=== PATIENT | female | born 1995 | race Caucasian/White ===

== ENCOUNTER 2023-04-23 04:35 | Emergency (ER) | payer MEDICAID, SELFPAY ==
--- NOTE | 2023-04-23 05:04 | W.ED.GENAD ---
Discharge Plan Discharge Details Chief Complaint: PsychEval Primary Care Provider: None,None ED Provider: Evgeny Graf Medical Decision Making 27-year-old female with a past medical history of borderline personality disorder, bipolar, and history of psychotic breakdowns that been associated with break-ups with boyfriends and have led to inpatient psychiatric admissions. She presents today for mental health evaluation. Per family who is here with her the patient had been having some changes in her mental behaviors over the last few months. 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 She recently broke up with her boyfriend about 8 weeks ago as he was no longer able to tolerate the changes in behavior. She does not take any of her prescribed mental health medications. And over the last week or so she has spiraling per family. Family has noticed erratic and somewhat manic-like behavior over the last few days, and then last night they contacted the patient and she was per family angry, aggressive, and drove away from [facility] and drove here to [facility] to go [place] With the help of law enforcement they were able to ping the phone, the patient was found roughly [place] miles into the [facility] off of any main road. She was brought in voluntarily but certainly un-enthusiastically. Currently the patient states that she want to go into the [facility] to have some time alone. Mind you that she did go into the [facility] at 3 in the morning and an unknown part of the state for her. She states that she has tried to hurt herself in the past, and she is not sure if she wants to hurt herself now. She states very clearly that she is unwilling to tell me the ways in which she wants to hurt herself, and how she would kill herself. She states that she might state and discussed that with another person though. She refuses to speak about auditory or visual hallucinations. She gives no other accurate history or complaints at this time. Exam demonstrates patient with notable pressured speech, flight of ideas, extremely confrontational disposition. Patient does state things that certainly do not line up with the current reality of the events. Family is here and confirms that this is not the patient's normal disposition, and also states that this is identical to when she has had her previous psychotic breakdowns in the past that required mental health admission. Currently the patient is yelling, slamming doors, and few times attempted to barricade the doors to prevent anyone from coming into the room to see or evaluate her. Patient clearly does not demonstrate signs of mental stability or clairvoyance. Concern for psychiatric breakdown and potential suicidality based on behavior and the history. There is a desperate need to make sure that the patient is medically cleared as there could be a component of a metabolic process that could be causing her symptoms. We did attempt to discuss with the patient the need for labs for medical clearance, as well as the transition from her current close to the hospital scrubs. Patient refused this and slammed the door at nv. We will continue to attempt to verbally reason with the patient, but we may require medication management to achieve blood draw and medical clearance. 5:48 AM The patient was unwilling to take off any close, she was unwilling to change, she was unwilling and refused to remove the multiple large chain necklaces around her neck. Out of concern for self-harm, as demonstrated by her previous behaviors and mindset, as well as the concern for potential metabolic cause of her current altered mental status and psychosis, we did again attempt to verbally reason with the patient for her needs for evaluation and management of her own safety in this situation. Patient notably refused and was not able to be reasoned with. Staff were gathered, and the patient was given the option of voluntarily helping in the process to maintain her safety and to complete her medical evaluation, versus medical and chemical restraints. Patient began screaming and cursing at all staff. She tried to slam and barricaded the door again. The decision was made for the patient's safety and the safety of others to administer 4 mg of IM Haldol, 2 mg of Ativan, and 25 mg of Benadryl IM. Restraints will be used in the interim. 7:08 AM On reassessment patient is doing much better, she is notably reasonable, polite, but also seems to have a much better understanding of her clinical concern, as well as our desire to make sure that she is safe from a medical standpoint as well as from a psychiatric standpoint. Restraints will be removed. We are still waiting for the completion of labs to determine medical clearance. 7:50 AM Patient's remained stable. She is now medically clear. We have reached out to mental health and they will come and evaluate the patient. Patient will be signed out to my colleague Dr. Vargas for follow-up on mental health assessment. [facility] General Date/Time Provider Initiated Documentation: 04/23/23 04:46. HPI Narrative: 27-year-old female with a past medical history of borderline personality disorder, bipolar, and history of psychotic breakdowns that been associated with break-ups with boyfriends and have led to inpatient psychiatric admissions. She presents today for mental health evaluation. Per family who is here with her the patient had been having some changes in her mental behaviors over the last few months. 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 She recently broke up with her boyfriend about 8 weeks ago as he was no longer able to tolerate the changes in behavior. She does not take any of her prescribed mental health medications. And over the last week or so she has spiraling per family. Family has noticed erratic and somewhat manic-like behavior over the last few days, and then last night they contacted the patient and she was per family angry, aggressive, and drove away from [facility] and drove here to [facility] to go [place] the [place]. With the help of law enforcement they were able to ping the phone, the patient was found roughly [place] into the [facility] [place] off of any main road. She was brought in voluntarily but certainly un-enthusiastically. Currently the patient states that she want to go into the [facility] to have some time alone. Mind you that she did go [facility] the [facility] at 3 in the morning and an unknown part of the state for her. She states that she has tried to hurt herself in the past, and she is not sure if she wants to hurt herself now. She states very clearly that she is unwilling to tell me the ways in which she wants to hurt herself, and how she would kill herself. She states that she might state and discussed that with another person though. She refuses to speak about auditory or visual hallucinations. She gives no other accurate history or complaints at this time. Review of Systems All systems reviewed & are unremarkable except as noted in HPI and below PFSH Social History Smoking/Tobacco Use Status: Unknown Smoking risk assessment performed?: Yes Exam Narrative Exam Narrative: 1.Const: Well-nourished, Well-developed, appearing stated age 2.Eyes: PERRL, no conjunctival injection, and symmetrical lids. 3.ENT: Atraumatic external nose and ears. Moist MM. Neck: Symmetric, trachea midline, No thyromegaly. 4.CVS: +S1/S2, No murmurs or gallops. Peripheral pulses 2+ and equal in all extremities. Brisk capillary refill in all extremities. 5.RESP: Unlabored respiratory effort. Clear to auscultation bilaterally. No wheezes rales or rhonchi 6.GI: Soft, Nontender/Nondistended, No hepatosplenomegaly. No guarding or rebound. 7.MSK: Normocephalic/Atraumatic, Extremities w/o deformity or ttp No cyanosis or clubbing, Normal movement of all extremities 8.Skin: Warm, Dry. No rashes or lesions. 9.Neuro: ear nose throat surgeon II-XII grossly intact. Sensation grossly intact, no focal neurologic deficits. 10.Psych: (AAO) x3. Flight of ideas, pressured speech, extremely confrontational disposition
[2023-04-23] MEDS: LORazepam 2 MG/ML VIAL IM (05:47)
[2023-04-23] MEDS: diphenhydrAMINE 50 MG/ML VIAL 25 MG IM (05:47)
[2023-04-23] MEDS: Haloperidol 5 MG/ML VIAL 4 MG IM (05:47)
[2023-04-23 06:52] LABS: Abs Immature Grans 0.09 10^3/uL (0.0-0.06); Absolute Basophil Count 0.04 10^3/uL (0.0-0.2); Absolute Lymphocyte Count 1.58 10^3/uL (1.2-3.4); Absolute Monocyte Count 0.65 10^3/uL (0.1-0.8); Absolute Neutrophil Count 7.43 10^3/uL (1.2-6.7); Basophils % 0.4; HCT 38.2 % (36.0-46.0); HGB 13.2 g/dL (11.2-15.7); Immature Grans % 0.9; Lymphocytes % 16.1; MCH 28.7 pg (27.0-33.0); MCHC 34.6 % (32.0-36.0); MCV 83 fL (80-95); MPV 9.5 fL (8.0-11.0); Monocytes % 6.6; Platelet Count 304 10^3/uL (130-400); RDW 12.9 % (11.7-14.6); RDW-SD 38.8 fL; WBC 9.79 10^3/uL (4.4-10.8)
[2023-04-23 07:20] LABS: ALT 17 U/L (14-59); AST 22 U/L (15-37); Albumin 4.1 g/dL (3.4-5.0); Alkaline Phosphatase 51 U/L (46-116); Anion Gap 13.8 mmol/L (3-11); BUN 13 mg/dL (7-18); Bilirubin, Total 0.4 mg/dL (0.2-1.0); CO2 19.2 mmol/L (21.0-32.0); CREATININE 0.9 mg/dL (0.55-1.02); Calcium 9.4 mg/dL (8.5-10.1); Chloride 105 mmol/L (98-107); Estimated GFR 89.86 (mL/min/1.73m2); Glucose 92 mg/dL (74-106); Potassium 3.6 mmol/L (3.5-5.1); Sodium 138 mmol/L (136-145); TSH (W/Ref FT4) 4.37 uIU/mL (0.36-3.74); Total Protein 7.8 g/dL (6.4-8.2)
[2023-04-23 07:22] LABS: ETHANOL BLOOD < 3.0 mg/dL (<10)
--- NOTE | 2023-04-23 08:22 | W.EDPROG ---
Date of service: 04/23/23 Time of Service: 08:22 Medical Decision Making I received signout on this medically cleared 27-year-old female with a history of bipolar disorder. Patient has had prior psychiatric hospitalizations. She transiently required intramuscular medications using haloperidol and lorazepam and restraints. She would meet criteria for EE as she was reportedly found wandering in the [place]. Crisis clinicians have been paged to assess the patient. She is reportedly calm at the moment. We will update documentation as clinically warranted and signed patient out to the oncoming evening provider. I ordered the patient a regular diet on a safety tray. 9:11 AM Salicylate level mildly elevated at 3.7 mg/dL. We will repeat this in 3 hours. Negative acetaminophen level. Supportive mom reportedly in waiting room. She does not want to see the patient at this point in time. Laura from [facility] has arrived to assess patient. Patient reportedly has had a prescription 1 year ago for 50 mg sertraline tablets. This was reportedly prescribed by Estefany Pratt, a family nurse practitioner in [place] in December 2021. 10:20 AM Negative serum hCG. 10:45 AM I spoke with Laura again from [facility] [place]. She reported that the patient was voluntary for inpatient placement. If patient wants to leave she will require reassessment. 1:55 PM Downtrending near normal salicylate level after 4 hours. Given no ongoing salicylate use will defer additional labs at this point time and consider patient medically cleared. 3:15 PM No active behavioral issues my shift. I will sign patient out to Dr. Cardenas. Sign Out Sign Out Data: Sign Out Comment: Psychiatric episode bipolar and psychosis. Follow-up on mental health assessment. Last updated by Evgeny Graf DO at 04/23/23 07:52 Discharge Plan Discharge Details Chief Complaint: PsychEval Primary Care Provider: None,None ED Provider: Austyn Vargas Home Meds and New Rx's Prescriptions: No Action No Known Home Meds
[2023-04-23 08:49] LABS: Salicylate 3.7 mg/dL (<2.8)
[2023-04-23 08:50] LABS: Acetaminophen < 2 ug/mL (10-30)
--- NOTE | 2023-04-23 09:15 | NUR.NOTE ---
Nursing Note: Oil Heat Technician spoke with mother and she stated that the patient has not been taking her medications in a while. She states that the patients pharmacy is [facility] in [place], [place]. Oil Heat Technician called for a med rec and senior copywriter was informed that the last prescription filled was in 01/03 for Zoloft 50mg daily. This information was relayed to Dr. Vargas.
[2023-04-23 10:01] LABS: HCG Qual (Serum) Negative
[2023-04-23 13:02] LABS: Salicylate 2.9 mg/dL (<2.8)
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
--- NOTE | 2023-04-23 15:31 | NUR.NOTE ---
Pt went to the bathroom but stated that she was unable to produce/catch a urine sample. Informed that this was very important, states understanding of the need.
--- NOTE | 2023-04-23 16:16 | PDOC.CMSAFE ---
Date of service: 04/23/23 Time of Service: 16:16 Care Management Safety Plan Status Status: Interim Reason for Wait Reason for Wait: Other Safety Plan Safety Plan: Sofia is a 27-year-old female with a past medical history of borderline personality disorder, bipolar, and history of psychotic breakdowns that been associated with break-ups with boyfriends and have led to inpatient psychiatric admissions. She has stopped taking her medications for the past few weeks and her behavior has become erratic,per family. She drove away from the [facility] to [facility] and went into the [facility]. Police found her and brought her to [facility]. CM will respond to ED to assess patient after patient has been medically cleared and assessed by screener. If screener deems patient meets criteria for psychiatric stabilization CM will facilitate interdepartmental huddle with [facility] screener for safety planning considerations and meet with patient to review [facility] policy and safety plan, establish individual wishes for treatment and maintain patient rights. In the interim; please note safety plan below to guide patient care while awaiting further assessment in the ED.? SAFETY PLAN: 1. Will remain on suicide precautions and in paper clothes.? 2. Will remain in room under direct supervision of one-on-one staff at all times provided by PATRICA, EDUCATIONAL COORDINATOR filter press operator. 3. May have paper cups, plates, finger foods as well as a cardboard spoon with which to eat meals. 4. Follow [facility] Management of the Admitted Behavioral Health Patient policy. 5. Personal care: Comfort bath system only at this time. 6. Bathroom privileges: with escort in ED. Available in room without limitation on Med/Surg. 6. No personal belongings at this time; per RN discretion. 7. No visitors at this time. 8. Phone contact limited to mother and legal contact at this time at nursing discretion. 9. Activities: Music tablet per RN discretion. Med/Surg: Television and remote available at RN discretion. 10. Due to VOLUNTARY status, if patient wishes to leave [facility], staff will contact [facility] Crisis Screener ([phone]) and On-Call Tariff Compiler ([phone]) as soon as possible. In the event of elopement, notify [facility] Police ([phone]). ?If deemed appropriate for inpatient psychiatric care, safety plan will be established with patient, and care team, to adhere to patient goals, identify restrictions based on behavioral status, address nutrition, and determine allowed personal belongings, tools for hygiene and personal care. As well plan will
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
[2023-04-23 17:41] LABS: Bilirubin Small (Negative); Blood Negative (Negative); Clarity Clear (Clear); Glucose Negative (Negative); Ketones Negative (Negative); Leukocyte Esterase Negative (Negative); Nitrite Negative (Negative); Specific Gravity >= 1.030 (1.005-1.025); Urobilinogen 0.2 mg/dL (Up to 0.2)
[2023-04-23 17:49] LABS: Bacteria Few HPF (Negative); Epithelial Cells Many HPF (Negative); RBC 0-2 HPF (0-2); WBC Negative HPF (0-5)
[2023-04-23 17:50] LABS: C & S Indicated? No/Sq. Contamination; Casts Negative LPF (Negative); Crystals Negative HPF (Negative); Mucus Trace (Negative)
[2023-04-23 17:54] LABS: *AMPHETAMINES SCREEN URINE Negative (Negative); *BARBITURATES SCREEN URINE Negative (Negative); *BENZODIAZEPINES SCREEN URINE Negative (Negative); Cannabinoids THC Positive (Negative); Cocaine Screen,Urine Negative (Negative); METHADONE URINE SCREEN Negative (Negative); OPIATES URINE SCREEN Negative (Negative); Tricyclic Antidepressants Negative (Negative)
--- NOTE | 2023-04-23 18:34 | NUR.NOTE ---
Nursing Note: PT has given staff permission to speak with her sister Chloé Aguilera and her mother Erica.
--- NOTE | 2023-04-23 22:10 | NUR.NOTE ---
Addendum entered by Sonya Gr RN 04/24/23 01:00: 2200* Original Note: Nursing Note: This RN took over as primary RN at 1000. Pt in bed appears to be sleeping with sitter at bedside.
[2023-04-24 09:14] VITALS: BP 131/97; PULSE 100; TEMP 36.5; O2SAT 99
--- NOTE | 2023-04-24 09:22 | W.EDPROG ---
Date of service: 04/24/23 Time of Service: 09:22 Medical Decision Making pt calm and cooperative, caox4 in no distress, reading papers on her stretcher, denies si/hi at this time, pending mental health reevaluation this morning but plan at present is still to seek voluntary placement. Sign Out Sign Out Data: Sign Out Comment: Psychiatric episode bipolar and psychosis. Follow-up on mental health assessment. Last updated by Evgeny Graf DO at 04/23/23 07:52 Sign Out Comment: Patient is pending placement in the setting of psychosis. She is medically cleared. Last updated by Austyn Vargas MD at 04/23/23 15:19 Discharge Plan Discharge Details Chief Complaint: PsychEval Primary Care Provider: None,None ED Provider: Juanito Harrison Home Meds and New Rx's Prescriptions: No Action No Known Home Meds
--- NOTE | 2023-04-24 11:55 | MHPN_ITS ---
Date of service: 04/24/23 Time of Service: 11:55 PHQ-9 Over the last 2 weeks, how often have you been bothered by any of the following problems? 1. Little interest or pleasure in doing things: nearly every day 2. Feeling down, depressed, or hopeless: nearly every day 3. Trouble falling or staying asleep, or sleeping too much: nearly every day 4. Feeling tired or having little energy: nearly every day 5. Poor appetite or overeating: nearly every day 6. Feeling bad about yourself - or that you are a failure or have let yourself and your family down: nearly every day 7. Trouble concentrating on things, such as reading the newspaper or watching television: nearly every day 8. Moving or speaking so slowly that other people could have noticed? - Or the opposite - being so fidgety or restless that you have been moving around a lot more than usual: nearly every day 9. Thoughts that you would be better off or of hurting yourself in some way: nearly every day Total score: 27 If you checked off any problems, how difficult have these problems made it for you to do your work, take care of things at home, or get along with other people?: extremely difficult PHQ-9 Results: Positive Source: Developed by Drs. Castro Feldman, Cydney Reaves, Darrian Cr and colleagues, with an educational latanya from [employer]. Suicide Severity Rate CSSRS Have you wished you were or wished you could go to sleep and not wake up?: Yes Have you actually had any thoughts of killing yourself?: Yes CSSRS2 Have you been thinking about how you might do this?: No Have you had these thoughts and had some intention of acting on them?: No Have you started to work out or worked out the details of how to kill yourself? Do you intend to carry out this plan?: No CSSRS3 Have you ever done anything, started to do anything or prepared to do anything to end your life?: Yes CSSRS4 Was this within the past three months?: Yes Screening Score Total Score: 8 Screening: Positive Mental Health Emergency Note Release HS release signed:: Yes Reason for Visit Client arrived early in the am on 04.23.23 via [facility] after a well person check was requested by her family. Client was agitated and refusing medical clearance after numerous attempts and was slamming doors and attempting to barricade herself in her room. Consequently chemically and physically restrained when she would not comply. 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 Today the client presents as alert and her emotions are more congruent to discussion. This assessment was done face to face. In the last 2 weeks has the pt presented for ES prior to today?: Unknown Client Information Client is: New Well Housed: Yes Non Suicidal Self Injury Current: No History: No Safety Risk/Harm to Self or Others Current Ideation to Harm Self or Others: No Risk: Does risk to harm exist?: yes. Access to means: Yes. Types of Means: Medication and Other. Details: Due to the delusional state the client can get in, her lack of taking her medications and her hoarding medications per her report for an overdose risk is higher. . Counseling provided: Yes Risk: High Risk Duty to warn indicated: No Asssessment/Mental Status Appearance: Disheveled and Poor hygiene Attitude: Cooperative, Guarded and Friendly Behavior: Unremarkable Speech: Normal Affect: Normal Mood: Anxious Thought process: Poverty of content Hallucinations: No Delusions: No Perception: Not impaired Orientation: Fully orientated Memory: Impaired in: Recent Insight: Fair Judgement: Fair Neurovegetative Symptoms Sleep: No change Appetitie: Increase Interests: Decrease Energy: No change Libido: Not applicable Substance Use: Drug Issues: Drug screen result Do you use nicotine?: Yes Have you used substances in the last 7 days?: No Additional Issues: Assaultive/Threatening Behavior: No Medical Concerns: No Client engaged in active self harm w/weapon: No Threatening to run away: No Child reported abuse/neglect: No Voluntarily presenting for services: Yes Domestic violence is a concern: No Extreme Psychosis or extreme behavior is present: No Impression Client is a 27 year old, single, female who lives independently in her apartment in [place]. She is reported by her mother to have a history of symptoms congruent with either a bipolar or schizophrenia diagnosis. She informed ES that she had the client's sister go to the apartment and turn on the location on the client's phone. Because of this forethought the client's mother was able to locate her when she took off yesterday in [facility]. The client nor her family have any tie to this area of [place]. The mother called JUDY who went to locate the client and found her almost 3 miles away from her car that was parked on the side of the road.? Client today presents as more alert and is sitting on her bed. She still presents with some confusion about events and how she feels about some. For example when sharing about her friends suicide she is tearful and states that she blames the family and then stated that she loves the family and they love her. Additionally she shared I know they were in trouble but they loved each other and did so many things together and provided for each other so lovingly. She reports that she is not suicidal however, has been in the last three months and is able to understand that her symptoms have affected her employment, ADL's and decision making skills. She is agreeable to remaining voluntary to seek placement. Resources Reosurces reviewed and given:: Other Plan/Disposition Recommended Disposition: Hospitalization facilities contacted and Therapy. Plan: Client will remain voluntary and seek placement while waiting at [facility]. She will be screened daily by [facility] until placement is found. Person reported agreement to plan: Yes Facilities contacted if Applicable [facility] Not accepted, Other [facility] Not accepted, Only accepting in house referrals [facility] Not accepted, (left a message and have not heard back. ) Other, [facility] Not accepted, Other Reports/communication Outcome discussed with: ED/Personnel
--- NOTE | 2023-04-24 12:32 | PDOC.CMPRO ---
Date of service: 04/24/23 Time of Service: 12:32 Care Management Progress Note Progress Note Text Progress Note Text: Melissa is a 27-year-old female with a past medical history of borderline personality disorder, bipolar, and history of psychotic breakdowns that been associated with break-ups with boyfriends and have led to inpatient psychiatric admissions. She has stopped taking her medications for the past few weeks and her behavior has become erratic, per family reports. She drove away from the [facility] to [facility] and [facility]. Police found her and brought her to [facility]. SAFETY PLAN: 1. Will remain on suicide precautions and in paper clothes.? 2. Will remain in room under direct supervision of one-on-one staff at all times provided by PATRICA, CLARIFYING PLANT OPERATOR stars coordinator. 3. May have paper cups, plates, finger foods as well as a cardboard spoon with which to eat meals. 4. Follow [facility] Management of the Admitted Behavioral Health Patient policy. 5. Personal care: Comfort bath system, showers permitted with escort at RN discretion. 6. Bathroom privileges: with escort in ED. Available in room without limitation on Med/Surg. 6. No personal belongings at this time; per RN discretion. 7. No visitors at this time. 8. Phone contact limited to mother and legal contact at this time at nursing discretion. 9. Activities: Music tablet, soft/paper activity cart items per RN discretion. Med/Surg: Television and remote available at RN discretion. 10.?Due to VOLUNTARY status,?if patient wishes to leave [facility], staff will contact [facility] Crisis Screener ([phone]) and On-Call Panel Instrument Repairer ([phone]) as soon as possible. In the event of elopement, notify [facility] Police ([phone]).
--- NOTE | 2023-04-24 12:35 | PDOC.CMSAFE ---
Date of service: 04/24/23 Time of Service: 12:35 Care Management Safety Plan Status Status: Voluntary Reason for Wait Reason for Wait: Inpatient Admission Safety Plan Safety Plan: Melissa is a 27-year-old female with a past medical history of borderline personality disorder, bipolar, and history of psychotic breakdowns that been associated with break-ups with boyfriends and have led to inpatient psychiatric admissions. She has stopped taking her medications for the past few weeks and her behavior has become erratic, per family reports. She drove away from the [facility] to [facility] and [facility]. Police found her and brought her to [facility]. SAFETY PLAN: 1. Will remain on suicide precautions and in paper clothes.? 2. Will remain in room under direct supervision of one-on-one staff at all times provided by PATRICA, ORACLE IAM CONSULTANT derrick boat operator. 3. May have paper cups, plates, finger foods as well as a cardboard spoon with which to eat meals. 4. Follow [facility] Management of the Admitted Behavioral Health Patient policy. 5. Personal care: Comfort bath system, showers permitted with escort at RN discretion. 6. Bathroom privileges: with escort in ED. Available in room without limitation on Med/Surg. 7. No personal belongings at this time; per RN discretion. 8. No visitors at this time per RN discretion. 9. Phone contact limited to mother and legal contact at this time at nursing discretion. 10. Activities: Music tablet, soft/paper activity cart items per RN discretion. Med/Surg: Television and remote available at RN discretion. 11.?Due to VOLUNTARY status,?if patient wishes to leave [facility], staff will contact [facility] Crisis Screener ([phone]) and On-Call Parcel Wrapper ([phone]) as soon as possible. In the event of elopement, notify [facility] Police ([phone]).
--- NOTE | 2023-04-24 22:25 | NUR.NOTE ---
Nursing Note: This RN took over as primary RN at 2200. Pt sitting in bed. She is tearful and states she just wants to go home or know what is going on. She is requesting use of the tablet. This administrative underwriter will check care plan. Sitter at bedside for patient safety.
--- NOTE | 2023-04-24 22:38 | NUR.NOTE ---
Nursing Note: Provided patient with music tablet per safety care plan. Patient requesting an update on placements with Laura in the morning.
--- NOTE | 2023-04-24 23:16 | W.EDPROG ---
Date of service: 04/24/23 Time of Service: 15:55 Medical Decision Making Patient signed out to me pending psychiatric admission. Patient medically clear and resting calmly in bed. Patient did state some slight increase of anxiety but was requesting nicotine so Nicotrol inhaler was ordered and patient remained calm through the remainder of my shift. Patient had no further complaints and rested in her bed for the full evening. Did hear from mental health that patient has potential to go to inpatient unit tomorrow as long as she remains calm for the remainder of the evening. We will continue to monitor pending bed availability. 2315-patient remains resting in bed with no further complaints, no outburst, has not stated any further issues during my time of care for patient. Will sign out patient pending psychiatric bed availability Exam Const General: cooperative, no acute distress and not ill appearing Orientation: alert and awake Resp Effort & Inspection: normal respiratory effort, able to speak in complete sentences and no respiratory distress Neuro General: patient alert, patient awake, moves all extremities and no focal motor deficits Sign Out Sign Out Data: Sign Out Comment: Psychiatric episode bipolar and psychosis. Follow-up on mental health assessment. Last updated by Evgeny Graf DO at 04/23/23 07:52 Sign Out Comment: Patient is pending placement in the setting of psychosis. She is medically cleared. Last updated by Austyn Vargas MD at 04/23/23 15:19 Sign Out Comment: patient on presentation was agitated, required sedation, now calm and cooperative seeking voluntary placement Last updated by Juanito Harrison MD at 04/24/23 14:25 Sign Out Comment: Patient signed out pending inpatient psychiatric treatment. Patient remains calm and cooperative with no further interventions needed. Last updated by Adria Mendez NP at 04/24/23 23:50 Discharge Plan Discharge Details Chief Complaint: PsychEval Primary Care Provider: None,None ED Provider: Adria Mendez Home Meds and New Rx's Prescriptions: No Action No Known Home Meds
--- NOTE | 2023-04-25 09:11 | PDOC.MHPN2 ---
Date of service: 04/25/23 Time of Service: 09:11 PHQ-9 Over the last 2 weeks, how often have you been bothered by any of the following problems? 1. Little interest or pleasure in doing things: nearly every day 2. Feeling down, depressed, or hopeless: nearly every day 3. Trouble falling or staying asleep, or sleeping too much: nearly every day 4. Feeling tired or having little energy: nearly every day 5. Poor appetite or overeating: nearly every day 6. Feeling bad about yourself - or that you are a failure or have let yourself and your family down: nearly every day 7. Trouble concentrating on things, such as reading the newspaper or watching television: nearly every day 8. Moving or speaking so slowly that other people could have noticed? - Or the opposite - being so fidgety or restless that you have been moving around a lot more than usual: nearly every day 9. Thoughts that you would be better off or of hurting yourself in some way: nearly every day Total score: 27 If you checked off any problems, how difficult have these problems made it for you to do your work, take care of things at home, or get along with other people?: extremely difficult PHQ-9 Results: Positive Source: Developed by Drs. Castro Feldman, Cydney Reaves, Darrian Cr and colleagues, with an educational latanya from [employer]. Suicide Severity Rate CSSRS Have you wished you were or wished you could go to sleep and not wake up?: Yes Have you actually had any thoughts of killing yourself?: Yes CSSRS2 Have you been thinking about how you might do this?: No Have you had these thoughts and had some intention of acting on them?: No Have you started to work out or worked out the details of how to kill yourself? Do you intend to carry out this plan?: No CSSRS3 Have you ever done anything, started to do anything or prepared to do anything to end your life?: Yes CSSRS4 Was this within the past three months?: Yes Screening Score Total Score: 8 Screening: Positive Mental Health Emergency Note Release HS release signed:: Yes Reason for Visit Client arrived early in the am on 04.23.23 via VSP after a well person check was requested by her family. Client was agitated and refusing medical clearance after numerous attempts and was slamming doors and attempting to barricade herself in her room. Consequently chemically and physically restrained when she would not comply. 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 Today's assessment was done face to face. The client is sitting on her bed listening to music. It was reported that she did not have any issues last night or this am. In the last 2 weeks has the pt presented for ES prior to today?: Unknown Client Information Client is: New Well Housed: Yes Non Suicidal Self Injury Current: No History: No Safety Risk/Harm to Self or Others Current Ideation to Harm Self or Others: No Risk: Does risk to harm exist?: No Risk: Low Risk Duty to warn indicated: No Asssessment/Mental Status Appearance: Disheveled Attitude: Cooperative and Friendly Behavior: Unremarkable Speech: Normal Affect: Normal Mood: Depressed and Anxious Thought process: Unremarkable Hallucinations: No Delusions: No Attention: Unremarkable Perception: Not impaired Orientation: Fully orientated Memory: Intact Insight: Good Judgement: Good Neurovegetative Symptoms Sleep: No change Appetitie: No change Interests: No change Energy: No change Libido: Not applicable Substance Use: Do you use nicotine?: Yes Have you used substances in the last 7 days?: No Additional Issues: Assaultive/Threatening Behavior: No Medical Concerns: No Client engaged in active self harm w/weapon: No Threatening to run away: No Child reported abuse/neglect: No Voluntarily presenting for services: Yes Domestic violence is a concern: No Extreme Psychosis or extreme behavior is present: No Impression Client is a 27 year old, single, female who lives independently in her apartment in [place]. She is reported by her mother to have a history of symptoms congruent with either a bipolar or schizophrenia diagnosis. She informed that she had the client's sister go to the apartment and turn on the location on the client's phone. Because of this forethought the client's mother was able to locate her when she took off yesterday in [facility]. The client nor her family have any tie to this area of [place]. The mother called JUDY who went to locate the client and found her almost 3 miles away from her car that was parked on the side of the road. Today the client sits on her bed listening to music. She makes great eye contact and is showing good insight and judgment. The client admits that the longer she waits the more sick she will become. She was happy to hear that she will likely be accepted today either by [facility] or [facility]. The client is wanting to eat breakfast and take a shower to feel a little better. She declined to sign a KINDRA for her mother stating that she would contact her when treatment was done. Plan/Disposition Recommended Disposition: Hospitalization facilities contacted and Therapy. Plan: Client was accepted by [facility] an will be transported to them today. Person reported agreement to plan: Yes Facilities contacted if Applicable [facility] Accepted, Accepted/transfer pending. Information Sent to [facility]: Referral Reports/communication Outcome discussed with: ED/Personnel
--- NOTE | 2023-04-25 14:49 | CMPROGNOTE_ITS ---
Date of service: 04/25/23 Time of Service: 14:50 Care Management Progress Note Progress Note Text Progress Note Text: DISPOSITION: Melissa is accepted for a voluntary admission for mood stabilization by [facility]. She will follow up with her community providers and plan of care as instructed upon discharge from the inpatient facility. [facility] coordinates transport via [facility]. Status Status: Voluntary Reason for Wait: Inpatient Admission
== END 2023-04-25 14:41 ==
PROVIDERS: Emergency Medicine; Student in an Organized Health Care Education/Training Program; Emergency Provider Nurse Practitioner Family
DX: F31.9 Bipolar disorder, unspecified (principal); F29 Unspecified psychosis not due to a substance or known physiological condition
CPT/HCPCS: 36415; 80053; 80307; 81025; 96372; 99284; 80320; 80329; 81003; 81015; 84439; 84443; 84703; 85025; J1200; J1630; J2060